=== PATIENT | female | born 1955 | race Caucasian/White ===

== ENCOUNTER → 2020-08-24 | Outpatient (CLI) | payer MEDICARE, OTHER ==
[2020-08-24 14:51] LABS: HCT 38.1 % (34.0-46.0); HGB 12.1 gm/dL (11.4-16.0); MCH 28.9 pg (25.0-35.0); MCHC 31.9 g/dL (31.0-37.0); MCV 90.7 fL (80.0-100.0); Mean Platelet Volume 7.5; Platelet Count 371 k/uL (150-450); RDW 13.2 % (11.5-15.5); WBC 4.3 k/uL (3.8-10.6)
[2020-08-24 14:54] LABS: Albumin 4.5 g/dL (3.5-5.0); Potassium 4.8 mmol/L (3.5-5.1); Total Bilirubin 0.4 mg/dL (0.2-1.3); Total Protein 6.9 g/dL (6.3-8.2)
[2020-08-24 15:05] LABS: Partial Thromboplastin Time 23.2 sec (22.0-30.0); Prothrombin Time 10.2 sec (9.0-12.0)
[2020-08-24 15:07] LABS: Appearance,Urine Clear (Clear); Bilirubin,Urine Negative (Negative); Blood,Urine Negative (Negative); Color,Urine Light Yellow; Glucose,Urine (UA) 4+ (Negative); Ketones,Urine Negative (Negative); Leukocyte Esterase,Urine Negative (Negative); Nitrite,Urine Negative (Negative); PH, Urine 6.5 (5.0-8.0); Protein,Urine Negative (Negative); Specific Gravity,Urine 1.006 (1.001-1.035); Urobilinogen,Urine <2.0 mg/dL (<2.0)
== END | disposition home or self-care (01) ==
LOC: LABPAT 13:32
PROVIDERS: ATTEND Orthopaedic Surgery
DX: Z01.818 Encounter for other preprocedural examination (principal); Z01.812 Encounter for preprocedural laboratory examination
CPT/HCPCS: 80053; 81003; 85027; 85610; 85730; 87070

== ENCOUNTER 2020-09-08 09:34 | Day surgery (SDC) | payer MEDICARE, OTHER ==
[2020-09-02 09:36] VITALS: BMI 29.1
[~2020-09-08 09:34] MED LIST: ACETAMINOPHEN TAB 500 MG TAB PO PRN; GABAPENTIN 300 MG CAP PO PRN; MELOXICAM 7.5 MG TAB PO PRN; ROPIVACAINE 246.25 MG, EPINEPHrine 0.5 MG, KETOROLAC (30 mg/mL) 30 MG, cloNIDine HCL/PF... MISCELLANE PRN; TRANEXAMIC ACID 1,000 MG in SODIUM CHLORIDE 0.9% 100 ML IVPB PRN
[2020-09-08] MEDS ORDERED: ONDANSETRON 4 MG/2 ML VIAL IVP ONE (09:50)
[2020-09-08] MEDS ORDERED: DEXAMETHASONE SOD PHOSPHATE 4 MG/ML 1 ML VIAL IV ONE (09:50)
[2020-09-08] MEDS ORDERED: LACTATED RINGERS 1,000 ML IV SCH (09:50)
[2020-09-08] MEDS ORDERED: LIDOCAINE 1% (10MG/ML) FOR IV START INTRADERMA PRN (09:50)
[2020-09-08] MEDS ORDERED: MIDAZOLAM 2 MG/2 ML VIAL IV PRN (09:50)
[2020-09-08] MEDS ORDERED: HYDROmorphone 0.5 MG/0.5 ML SYRINGE IVP PRN ×2 (09:50→11:12)
[2020-09-08 10:47] LABS: Glucose,Whole Blood 185 mg/dL (75-99)
[2020-09-08] MEDS ORDERED: fentaNYL (PF) 50 MCG/ML 2 ML AMP IVP ONE (10:50)
[2020-09-08] MEDS ORDERED: TRANEXAMIC ACID 1,000 MG/10 ML VIAL ONE (11:06)
[2020-09-08] MEDS ORDERED: MIDAZOLAM 2 MG/2 ML VIAL ONE (11:06)
[2020-09-08] MEDS ORDERED: SODIUM CHLORIDE 0.9% 100 ML BAG ONE (11:06)
[2020-09-08] MEDS ORDERED: PHENYLEPHRINE 10 MG/ML VIAL ONE (11:06)
[2020-09-08] MEDS ORDERED: fentaNYL (PF) 50 MCG/ML 2 ML AMP ONE (11:06)
[2020-09-08] MEDS ORDERED: PROPOFOL 10 MG/ML 20 ML VIAL IV ONE (11:06)
[2020-09-08] MEDS ORDERED: NALOXONE 0.4 MG/ML 1 ML VIAL IV PRN (11:12)
[2020-09-08] MEDS ORDERED: HYDROcodone/APAP 5-325MG 1 EACH TAB PO PRN (11:12)
[2020-09-08] MEDS ORDERED: NA PHOS,M-B/NA PHOS,DI-BA 133 ML ENEMA RECTAL PRN (11:12)
[2020-09-08] MEDS ORDERED: ONDANSETRON 4 MG/2 ML VIAL IVP PRN (11:12)
[2020-09-08] MEDS ORDERED: HYDROmorphone 1 MG/ML 1 ML SYRINGE IVP PRN (11:12)
[2020-09-08] MEDS ORDERED: HYDROmorphone 0.2 MG/1 ML SYRINGE IVP PRN (11:12)
[2020-09-08] MEDS ORDERED: MAGNESIUM HYDROXIDE 2,400 MG/10 ML CUP PO PRN (11:12)
[2020-09-08] MEDS ORDERED: bisacodyL 10 MG SUPP RECTAL PRN (11:12)
[2020-09-08] MEDS ORDERED: LACTATED RINGERS 1,000 ML IV ONE (12:14)
[2020-09-08] MEDS ORDERED: ceFAZolin 3,000 MG in SODIUM CHLORIDE 0.9% IRRIGATIO 3,000 ML IRRIGATION ONE (12:15)
--- NOTE | 2020-09-08 12:29 | P.OP ---
Date of Procedure: 09/08/20 Preoperative Diagnosis: Severe osteoarthritis of the left knee with valgus deformity Postoperative Diagnosis: Severe osteoarthritis the left knee with a valgus deformity Procedure(s) Performed: Left total knee arthroplasty Implants: Wong [employer] Nephew Journey II CR Oxinium cruciate retaining femoral component size 5, left [employer] Nephew Journey nonporous tibial baseplate size 4, left [employer] Journey II, XLPE CR articular insert, size 9 mm, Size 3-4, left [employer] Nephew Journey Praveena II resurfacing patellar component, oval, 29 mm All components were cemented using Palacos R bone cement The articulation is Oxinium on polyethylene Anesthesia: spinal Surgeon: Samuel Barraza Solar Installer #1: Milagros Atwood Estimated Blood Loss (ml): 25 Pathology: other (Bone and cartilage) Condition: stable Disposition: PACU Indications for Procedure: After failure of conservative treatment we discussed the surgical and nonsurgical treatment options at length. Patient wishes to proceed with a total knee arthroplasty. Complications specific to this procedure were discussed at length, including but not limited to infection, bleeding, stiffness, and nerve injury. Covid-19 was also discussed at length with the patient, and they are aware of the current policies and procedures. The patient was given the option of delaying surgery, but they elect to proceed knowing these risks. Patient is aware of all these complications and informed consent was obtained Operative Findings: The operative findings are consistent with severe osteoarthritis the left knee with a valgus deformity Description of Procedure: Patient was seen in the preoperative area and the consent was reviewed and the operative site was marked with a skin marker. The patient verified the procedure and the operative site. An adductor canal pain catheter was placed by anesthesia in the preoperative area. The patient was then brought to the operating room and given preoperative antibiotics intravenously. A gram of transexamic acid was given intravenously. A spinal anesthetic was administered by the anesthesia department. A tourniquet was placed on the upper thigh and the lower extremity was prepped with chlorhexidine and draped in usual sterile fashion. A universal timeout was then performed which confirmed the patient's name, surgical site, ALLERGIES, and consent. The lower extremity was then exsanguinated and tourniquet was inflated to 250 mmHg. A standard anterior midline approach to the knee was performed. The skin and subcutaneous tissue were sharply dissected down to the patellar tendon. A medial parapatellar arthrotomy was then performed. The knee was then extended, the patellar was everted, and the knee was again flexed. The infra-patellar fat pad was removed in order to enhance exposure. The anterior horns of both menisci were excised, and a release was performed to the posterior medial aspect of the knee. On gross visual inspection, there was complete loss of articular cartilage in the lateral and patellofemoral joint spaces. There was also significant cartilage damage in the medial compartment. There were multiple periarticular osteophytes globally about the knee which were then removed with a Ronguer. The femoral canal was then opened with the 9.5 mm intramedullary drill. The 8 mm intramedullary vikram was then inserted into the femoral canal with the distal femoral cutting guide set for 5 of valgus. The distal femoral cutting block was then pinned in place. The intramedullary vikram was then removed, and the distal femur was then cut. The cutting block was then removed and the cut was checked for symmetry. The resected bone was then measured to confirm the appropriate distal femoral resection. Next, the sizing guide was then placed and set for 3 external rotation based off of the epicondylar axis and Whitesides line. Pins were then placed and the drill holes, and the femur was sized with the sizing stylus. The pins were then removed, and the sizing guide was then removed. The spikes of the femoral block was then placed into the predrilled holes, and malleted into place. Two 45 mm pins were then placed into the fixation holes on the cutting block. An dee dee wing was then used to ensure there would be no notching with the anterior cut. The anterior condyles were cut without notching. The anterior chord cut was then performed, followed by the posterior cut, posterior chamfer cut, and the anterior chamfer cut. The collateral ligaments were protected during the entire process. The cutting block was then removed. Any remaining bone and osteophytes were removed from the femur with a Rominger. The femoral canal was plugged with autologous bone. Attention was then directed to the tibia. The remaining ACL was removed with a Ronguer, and the tibia was then gently subluxed forward with a large bent knee retractor. Any remaining menisci were excised. The posterior lateral corner was cauterized in order to coagulate the lateral geniculate artery. The extra medullary tibial cutting guide was then placed, set for the appropriate rotation, slope, and depth of resection. The proximal tibia cutting guide was then pinned in place. Proximal tibia was then cut and sized. The femoral trial was placed. A narrow saw blade was then used to remove the anterior intracondylar femoral bone. The CR notch trial was then placed. The tibial trial was placed with the appropriate-sized insert. The knee was able to fully extend and flex to 130 and was stable throughout all range of motion. The knee was then extended and the patella was everted. Patella was then measured, and then using an osteotomy guide, the patella was cut at the appropriate level. The patella was then measured and drilled and the patella trial was then placed. The knee was then taken through range of motion with the patella trial and the patella tracked normally using the no thumbs technique.. The knee was then ex tended patella trial was then removed and the patella was everted. Knee was then flexed and lug holes were drilled through the femoral trial and the femoral trial was then removed. The tibial was then re-exposed, and the tibial broach guide was then pinned in place after it was set for the appropriate rotation to allow for the most coverage without overhang. The tibia was then reamed and broached. The cut surfaces of bone were then irrigated with pulsatile lavage. The posterior structures were injected with the ropivacaine solution. The knee was also irrigated with Irrisept solution. The components were then opened, the cement was mixed, and the components were then cemented in place. The cement was allowed to harden with the knee in full extension. While the cement was hardening, the remaining soft tissues were then injected with a ropivacaine solution, which consisted of 246.25 mg of ropivacaine, 0.5 mg of epinephrine, 30 mg of Toradol, 80 g of clonidine, and 48.45 mL of sterile water, for a total of 100 mL of fluid injected. After the cemented hardened. The tourniquet was released, and hemostasis was obtained. A second gram of transexamic acid was given intravenously. The knee was again irrigated. The knee was again taken through range of motion and found to be stable throughout all range of motion of 0-130, and the patella tracked normally. The fascia was then closed with 0 Vicryl followed by #2 strata fix suture. The subcutaneous tissue was closed with 3-0 Vicryl and 3-0 strata fix. Exofin glue was used for the skin and placed with the knee in flexion. After the glue had dried, and Optafoam silver impregnated dressing was applied. The patient was then transferred to recovery room in stable condition. The statistical assistant SARAH Smith was required due the complexity surgery and the need for a skilled surgical instrument technician. She assisted in positioning, draping, retraction, and closure of the wound.
[2020-09-08] MEDS ORDERED: ROPIVACAINE 0.2%-NS ON-Q PUMP 1,090 MG, EMPTY PAIN BALL 1 EACH MISCELLANE PRN ×2 (12:59→13:58)
[2020-09-08 13:20] VITALS: RESP 16
[2020-09-08 13:25] LABS: Glucose,Whole Blood 187 mg/dL (75-99)
--- NOTE | 2020-09-08 13:26 | XR ---
Left knee Limited HISTORY: Status post left knee arthroplasty 2 views of the left knee Patient is status post left knee arthroplasty. There is anatomic alignment. Lucency is present in the soft tissues. Bone mineralization is reduced. IMPRESSION: Orthopedic follow-up.
--- NOTE | 2020-09-08 14:00 | P.ANPRN ---
Procedure Note - Anesthesia - Nerve Block Performed Left Adductor Canal Time Out Performed: Yes (10:48) Date of Procedure: 09/08/20 Procedure Start Time: :48 Procedure Stop Time: 11:03 Location of Patient: PreOp Indication: Acute Post-Operative Pain, Requested by Surgeon (Dr Samuel Barraza) Sedation Type: Sedate with meaningful contact maintained Preparation: Sterile Prep, Sterile Dressing Position: Supine Catheter: Indwelling Needle Types: Pajunk Needle Gauge: 21 Ultrasound used to visualize needle placement: Yes Ultrasound used to observe medication spread: Yes Injectate: 0.5% Ropivacaine (see comment for volume) (20cc) Blood Aspirated: No Pain Paresthesia on Injection Noted: No Resistance on Injection: Normal Image Stored and Saved: Yes Events: Uneventful and Well Tolerated
[2020-09-08] MEDS: SODIUM CHLORIDE 0.9% 1,000 ML IV SCH ×2 (16:30→21:53)
[2020-09-08 17:47] LABS: Glucose,Whole Blood 266 mg/dL (75-99)
[2020-09-08 20:13] LABS: Glucose,Whole Blood 310 mg/dL (75-99)
[2020-09-08] MEDS: ASPIRIN 325 MG TAB PO SCH (20:34)
[2020-09-08] MEDS: INSULIN ASPART (NovoLOG) 100 UNIT/ML VIAL SQ SCH (20:35)
[2020-09-08] MEDS ORDERED: SENNOSIDES-DOCUSATE SODIUM 1 EACH TAB PO SCH (21:00)
[2020-09-08] MEDS: HYDROcodone/APAP 5-325MG 1 EACH TAB PO PRN (21:58)
[2020-09-09 02:44] VITALS: PULSE 69
[2020-09-09] MEDS: HYDROcodone/APAP 5-325MG 1 EACH TAB PO PRN (05:59)
[2020-09-09 06:35] LABS: Basophils % (A) 0 %; Eosinophils # (A) 0.1 k/uL (0-0.7); Eosinophils % (A) 1 %; HCT 31.1 % (34.0-46.0); HGB 10.6 gm/dL (11.4-16.0); Lymphocytes # (A) 1.8 k/uL (1.0-4.8); Lymphocytes % (A) 23 %; MCH 30.3 pg (25.0-35.0); MCHC 34.2 g/dL (31.0-37.0); MCV 88.7 fL (80.0-100.0); Mean Platelet Volume 7.5; Monocytes # (A) 0.4 k/uL (0-1.0); Monocytes % (A) 6 %; Neutrophils # (A) 5.3 k/uL (1.3-7.7); Neutrophils % (A) 68 %; Platelet Count 318 k/uL (150-450); RDW 12.8 % (11.5-15.5); WBC 7.8 k/uL (3.8-10.6)
[2020-09-09 07:02] LABS: Glucose,Whole Blood 118 mg/dL (75-99)
--- NOTE | 2020-09-09 07:02 | P.PN ---
Progress Note - Text Progress Note Date: 09/09/20 Patient was seen at bedside at 630 AM. Patient is postop day 1 from left total knee replacement with adductor canal catheter placed for pain . Ropivacaine 0.2% infusion running at 8 ml per hour. VAS score is 3/10. Patient denies side effects. Lower extremity sensation and motor function is intact. Patient has ambulated. Dressing clean dry and intact over catheter site
[2020-09-09] MEDS: INSULIN ASPART (NovoLOG) 100 UNIT/ML VIAL SQ SCH ×2 (07:03→11:56)
[2020-09-09] MEDS: ASPIRIN 325 MG TAB PO SCH (07:49)
[2020-09-09] MEDS ORDERED: HYDROcodone/APAP 7.5-325MG 1 EACH TAB PO PRN ×2 (08:15)
--- NOTE | 2020-09-09 08:20 | P.DS ---
Providers Expected date of discharge: 09/09/20 Attending physician: Samuel Barraza Consults: 09/08/20 11:12 Consult Physician Routine Consulting Provider: Maurice Baldwin Consult Reason/Comments: medical mangement Do you want consulting provider notified?: Yes Primary care physician: Vinnie Garcia - Discharge Diagnosis(es) (1) Osteoarthritis of left knee Current Visit: Yes Status: Acute (2) S/P total knee arthroplasty Current Visit: Yes Status: Acute Hospital Course: This is a 65-year-old female with known history of degenerative arthritis of the left knee. The patient presented for evaluation as an outpatient. After discussion and consideration patient elects to proceed with total knee arthroplasty. The patient is seen preoperatively by Dr. Barraza and medically cleared for surgery by their primary care physician. Patient is admitted to [facility] on 09/08/2020 for total knee arthroplasty. The procedure is performed without complication or sequelae. The patient is doing well postoperatively. Labs and vital signs are stable on day of discharge. On day of discharge patient's knee incision is healing well. There is minimal erythema. There is no drainage noted at this time. There is minimal soft tissue swelling to the knee. Patient has full foot and ankle motion without difficulty or pain. Calf is soft and nontender to palpation. Neurovascular status to the left lower extremity is intact. Patient is discharged home in good condition. Opioid start talking form is reviewed and signed. Please see med rec for accurate list of home medications. Plan - Discharge Summary Discharge Rx Participant: Yes New Discharge Prescriptions: New Aspirin 325 mg PO BID #60 tab HYDROcodone/APAP 7.5-325MG [[place] 7.5-325] 1 - 2 tab PO Q6H PRN #32 tab PRN Reason: Pain Sennosides [Senokot] 2 tab PO DAILY PRN #60 tablet PRN Reason: Constipation No Action Cetirizine HCl [Zyrtec] 10 mg PO DAILY Acetaminophen Tab [Tylenol Tab] 1,000 mg PO Q6HR PRN PRN Reason: Pain Glimepiride [Amaryl] 4 mg PO AC-BID metFORMIN HCL [Glucophage] 1,000 mg PO AC-BID lisinopriL [Zestril] 10 mg PO HS Atorvastatin [Lipitor] 40 mg PO PC-SUPPER Nitroglycerin Sl Tabs [Nitrostat] 0.4 mg SUBLINGUAL Q5M PRN PRN Reason: Chest Pain Multivitamins, Thera [Multivitamin] 1 each PO DAILY Gabapentin [Neurontin] 400 mg PO TID Aspirin [Adult Low Dose Aspirin EC] 81 mg PO HS Anastrozole [Arimidex] 1 mg PO HS Albuterol Inhaler [Ventolin Hfa Inhaler] 2 puff INHALATION RT-QID PRN PRN Reason: Shortness Of Breath B Complex-Vit C-Vit E-Zinc [Z-Bec] 1 tab PO PC-SUPPER Celecoxib [CeleBREX] 200 mg PO PC-SUPPER Cholecalciferol [Vitamin D3 (25 Mcg = 1000 Iu)] 1,000 unit PO BID Fenofibrate,Micronized [Fenofibrate] 134 mg PO DAILY Fluticasone Nasal [place] [Flonase Nasal [place]] 1 spray EA NOSTRIL DAILY Metoprolol Tartrate [Lopressor] 100 mg PO BID Omeprazole Magnesium [PriLOSEC OTC] 20 mg PO DAILY PRN PRN Reason: GERD Discharge Medication List Acetaminophen Tab [Tylenol Tab] 1,000 mg PO Q6HR PRN 08/24/16 [History] Anastrozole [Arimidex] 1 mg PO HS 08/24/16 [History] Aspirin [Adult Low Dose Aspirin EC] 81 mg PO HS 08/24/16 [History] Atorvastatin [Lipitor] 40 mg PO PC-SUPPER 08/24/16 [History] Cetirizine HCl [Zyrtec] 10 mg PO DAILY 08/24/16 [History] Gabapentin [Neurontin] 400 mg PO TID 08/24/16 [History] Glimepiride [Amaryl] 4 mg PO AC-BID 08/24/16 [History] Multivitamins, Thera [Multivitamin] 1 each PO DAILY 08/24/16 [History] Nitroglycerin Sl Tabs [Nitrostat] 0.4 mg SUBLINGUAL Q5M PRN 08/24/16 [History] lisinopriL [Zestril] 10 mg PO HS 08/24/16 [History] metFORMIN HCL [Glucophage] 1,000 mg PO AC-BID 08/24/16 [History] Albuterol Inhaler [Ventolin Hfa Inhaler] 2 puff INHALATION RT-QID PRN 09/02/20 [History] B Complex-Vit C-Vit E-Zinc [Z-Bec] 1 tab PO PC-SUPPER 09/02/20 [History] Celecoxib [CeleBREX] 200 mg PO PC-SUPPER 09/02/20 [History] Cholecalciferol [Vitamin D3 (25 Mcg = 1000 Iu)] 1,000 unit PO BID 09/02/20 [History] Fenofibrate,Micronized [Fenofibrate] 134 mg PO DAILY 09/02/20 [History] Fluticasone Nasal [place] [Flonase Nasal [place]] 1 spray EA NOSTRIL DAILY 09/02/20 [History] Metoprolol Tartrate [Lopressor] 100 mg PO BID 09/02/20 [History] Omeprazole Magnesium [PriLOSEC OTC] 20 mg PO DAILY PRN 09/02/20 [History] Aspirin 325 mg PO BID #60 tab 09/09/20 [Rx] HYDROcodone/APAP 7.5-325MG [[place] 7.5-325] 1 - 2 tab PO Q6H PRN #32 tab 09/09/20 [Rx] Sennosides [Senokot] 2 tab PO DAILY PRN #60 tablet 09/09/20 [Rx] Follow up Appointment(s)/Referral(s): Samuel Barraza DO [Doctor of Osteopathic Medicine] - 2 Weeks Activity/Diet/Wound Care/Special Instructions: Weightbearing as tolerated with a walker. CPM 5-6h daily. Leave dressing intact. May be removed by home care nurse or by patient in 10 days. May shower with dressing on. Recommend use of compression stockings daily until follow up to help prevent swelling and blood clots. May remove at night before sleeping. Please take aspirin 325mg twice daily for 30 days to prevent blood clots. Please follow up with [facility] and call with any questions or concerns, . Discharge Disposition: HOME WITH HOME HEALTH SERVICES
[2020-09-09 08:23] VITALS: BP 134/75; TEMP 98
[2020-09-09 11:37] LABS: Glucose,Whole Blood 311 mg/dL (75-99)
--- NOTE | 2020-09-09 16:00 | P.CNPUL ---
History of Present Illness Consult date: 09/09/20 (Medical consult) Chief complaint: Medical management History of present illness: Patient seen and evaluated examined on fourth floor patient is ready for discharge, patient underwent left total knee arthroplasty, postop day #1, tolerated very well, her history is significant for severe degree of degenerative knee disease with crippling orthosis, her prior medical history significant for type 2 diabetes mellitus hypertension hypertensive card iovascular disease dyslipidemia and bronchial asthma, patient is being continued on her home medications and will be discharged home medications Review of Systems All systems: negative Past Medical History Past Medical History: Asthma, Cancer, Diabetes Mellitus, GERD/Reflux, Hyperlipidemia, Hypertension, Osteoarthritis (OA) Additional Past Medical History / Comment(s): Hypertrophic Cardiomyopathy. Hiatal hernia. Hx Breast Cancer 2012. History of Any Multi-Drug Resistant Organisms: None Reported Past Surgical History: Adenoidectomy, Cholecystectomy, Orthopedic Surgery, Tonsillectomy Additional Past Surgical History / Comment(s): RT Knee surgery. D & C - Multiple. Lumpectomy LT Breast. Mediport Insertions. Colonoscopy. Past Anesthesia/Blood Transfusion Reactions: Family History of Problems w/ Anesthesia, Postoperative Nausea & Vomiting (PONV) Additional Past Anesthesia/Blood Transfusion Reaction / Comment(s): Mother had prob w/ low blood pressure, "almost lost her." Past Psychological History: No Psychological Hx Reported Smoking Status: Never smoker, Second hand smoke exposure Past Alcohol Use History: None Reported Additional Past Alcohol Use History / Comment(s): EXPOSED TO 2ND HAND SMOKE Past Drug Use History: None Reported - Past Family History Mother Family Medical History: No Reported History Medications and Allergies Home Medications Medication Instructions Recorded Confirmed Type Acetaminophen Tab [Tylenol Tab] 1,000 mg PO Q6HR PRN 08/24/16 09/08/20 History Anastrozole [Arimidex] 1 mg PO HS 08/24/16 09/02/20 History Aspirin [Adult Low Dose Aspirin EC] 81 mg PO HS 08/24/16 09/02/20 History Atorvastatin [Lipitor] 40 mg PO PC-SUPPER 08/24/16 09/02/20 History Cetirizine HCl [Zyrtec] 10 mg PO DAILY 08/24/16 09/02/20 History Gabapentin [Neurontin] 400 mg PO TID 08/24/16 09/02/20 History Glimepiride [Amaryl] 4 mg PO AC-BID 08/24/16 09/02/20 History Multivitamins, Thera [Multivitamin] 1 each PO DAILY 08/24/16 09/02/20 History Nitroglycerin Sl Tabs [Nitrostat] 0.4 mg SUBLINGUAL Q5M PRN 08/24/16 09/02/20 History lisinopriL [Zestril] 10 mg PO HS 08/24/16 09/02/20 History metFORMIN HCL [Glucophage] 1,000 mg PO AC-BID 08/24/16 09/02/20 History Albuterol Inhaler [Ventolin Hfa 2 puff INHALATION RT-QID PRN 09/02/20 09/08/20 History Inhaler] B Complex-Vit C-Vit E-Zinc [Z-Bec] 1 tab PO PC-SUPPER 09/02/20 09/02/20 History Celecoxib [CeleBREX] 200 mg PO PC-SUPPER 09/02/20 09/02/20 History Cholecalciferol [Vitamin D3 (25 1,000 unit PO BID 09/02/20 09/02/20 History Mcg = 1000 Iu)] Fenofibrate,Micronized 134 mg PO DAILY 09/02/20 09/02/20 History [Fenofibrate] Fluticasone Nasal [place] [Flonase 1 spray EA NOSTRIL DAILY 09/02/20 09/02/20 History Nasal [place]] Metoprolol Tartrate [Lopressor] 100 mg PO BID 09/02/20 09/02/20 History Omeprazole Magnesium [PriLOSEC OTC] 20 mg PO DAILY PRN 09/02/20 09/02/20 History Aspirin 325 mg PO BID #60 tab 09/09/20 Rx HYDROcodone/APAP 7.5-325MG [[place] 1 - 2 tab PO Q6H PRN #32 tab 09/09/20 Rx 7.5-325] Sennosides [Senokot] 2 tab PO DAILY PRN #60 tablet 09/09/20 Rx Allergies Allergy/AdvReac Type Severity Reaction Status Date / Time bee venom protein (honey bee) Allergy Anaphylaxis Verified 09/08/20 10:03 erythromycin base Allergy Nausea & Verified 09/08/20 10:03 Vomiting AND HIVES Penicillins Allergy Nausea & Verified 09/08/20 10:03 Vomiting Physical Exam Vitals: Vital Signs Temp Pulse Resp BP Pulse Ox 09/09/20 08:00 98.0 F 69 16 134/75 96 09/09/20 01:41 98.4 F 69 16 116/74 96 09/08/20 19:06 98.9 F 85 16 117/68 94 L 09/08/20 16:00 70 124/64 97 Intake and Output 09/09/20 09/09/20 09/09/20 06:59 14:59 22:59 Other: # Voids 4 - Constitutional General appearance: average body habitus, disheveled - EENT Eyes: PERRLA Ears: bilateral: normal - Neck Carotids: bilateral: upstroke normal Thyroid: bilateral: normal size - Respiratory Respiratory: bilateral: CTA - Cardiovascular Rhythm: regular Heart sounds: normal: S1, S2 - Gastrointestinal General gastrointestinal: decreased bowel sounds - Neurologic Neurologic: CNII-XII intact - Musculoskeletal Musculoskeletal: gait normal, generalized weakness, strength equal bilaterally - Psychiatric Psychiatric: A&O x's 3, appropriate affect, intact judgment & insight Results - Laboratory Findings CBC and BMP: 09/09/20 06:02 Abnormal lab findings: Abnormal Labs 09/08/20 09/08/20 09/08/20 10:31 13:23 17:45 RBC Hgb Hct POC Glucose (mg/dL) 185 H 187 H 266 H 09/08/20 09/09/20 09/09/20 20:11 06:02 07:01 RBC 3.50 L Hgb 10.6 L Hct 31.1 L POC Glucose (mg/dL) 310 H 118 H 09/09/20 11:35 RBC Hgb Hct POC Glucose (mg/dL) 311 H Assessment and Plan Assessment: Hypertension hypertensive cardiovascular disease Diabetes mellitus type 2 GERD Dyslipidemia Degenerative joint disease and osteoarthritis Plan: Agree with discharge planning on her home medications continued as planned, follow with primary care provider and Dr. Barraza Time with Patient: Greater than 30
== END 2020-09-09 13:55 | disposition home health service (06) ==
LOC: OR 09:34 → 4SSUR 13:40 → OR 09-09 13:55
PROVIDERS: ATTEND Orthopaedic Surgery
DX: M17.12 Unilateral primary osteoarthritis, left knee (principal); M21.062 Valgus deformity, not elsewhere classified, left knee; M25.762 Osteophyte, left knee; I11.9 Hypertensive heart disease without heart failure; I42.2 Other hypertrophic cardiomyopathy; E78.5 Hyperlipidemia, unspecified; J45.909 Unspecified asthma, uncomplicated; K21.9 Gastro-esophageal reflux disease without esophagitis; Z97.3 Presence of spectacles and contact lenses; Z79.84 Long term (current) use of oral hypoglycemic drugs; Z88.0 Allergy status to penicillin; Z88.1 Allergy status to other antibiotic agents; Z79.82 Long term (current) use of aspirin; Z79.811 Long term (current) use of aromatase inhibitors; Z79.1 Long term (current) use of non-steroidal anti-inflammatories (NSAID); Z79.899 Other long term (current) drug therapy; Z85.3 Personal history of malignant neoplasm of breast; Z90.49 Acquired absence of other specified parts of digestive tract; Z90.89 Acquired absence of other organs; Z98.890 Other specified postprocedural states; Z77.22 Contact with and (suspected) exposure to environmental tobacco smoke (acute) (chronic); Z91.030 Bee allergy status; E11.9 Type 2 diabetes mellitus without complications
CPT/HCPCS: 97110; 97161; 64448; 76942; 85025; 88300; 73560; 27447; C1713; C1776; J2250; J0171; J1100; J2370; J0690 ×3; J2405; J3010; J1885; J1170; J2795 ×2; J2704; J0735